=== PATIENT | female | born 1960 | race Caucasian/White ===

== ENCOUNTER 2019-05-20 04:42 | Inpatient (IN) | payer OTHER ==
[~2019-05-20] VITALS: Ht 165.1 cm; Wt 85.7 kg
[2019-05-20 04:45] VITALS: BP_SYST 160
[2019-05-20] MEDS ORDERED: methylPREDNISolone SOD SUCC/PF 62.5 MG/ML VIAL IVP ONE (05:15)
[2019-05-20] MEDS ORDERED: cefTRIAXone 1 GM IVPB PREMIX 50 ML IV ONE (05:15)
[2019-05-20] MEDS ORDERED: AZITHROMYCIN 250 MG TABLET PO ONE (05:15)
[2019-05-20] MEDS ORDERED: ALBUTEROL SULFATE 0.083% 2.5 MG/3 ML VIAL.NEB INH ONE ×2 (05:45→07:50)
[2019-05-20] MEDS ORDERED: IPRATROPIUM BROM 0.5 MG/2.5 ML VIAL.NEB (ATROVENT) INH ONE (05:45)
[2019-05-20 06:08] LABS: BASOPHILS % (AUTO) 0.2 % (0.0-2.0); EOSINOPHILS # (AUTO) 0.2 K/uL (0.0-0.4); EOSINOPHILS % (AUTO) 0.8 % (0.0-4.0); HEMOGLOBIN 14.3 g/dL (12.0-16.0); LYMPHOCYTES # (AUTO) 1.3 K/uL (1.0-5.5); LYMPHOCYTES % (AUTO) 6.6 % (20.5-51.5); MEAN CORPUSCULAR HEMOGLOBIN 31 pg (27-31); MEAN CORPUSCULAR HGB CONC 33 % (32-36); MEAN CORPUSCULAR VOLUME 92 fL (79.0-98.0); MONOCYTES # (AUTO) 2.4 K/uL (0.0-1.0); MONOCYTES % (AUTO) 11.6 % (1.7-9.3); NEUTROPHILS # (AUTO) 16.4 K/uL (1.8-7.7); PLATELET COUNT (AUTO) 233 K/uL (130-430); RED BLOOD CELL COUNT(AUTO) 4.67 MIL/uL (4.2-6.2); RED CELL DISTRIBUTION WIDTH 12.4 % (9.0-15.0); WHITE BLOOD COUNT (AUTO) 20.3 K/uL (4.8-10.8)
[2019-05-20 06:20] LABS: ANION GAP 9 (5-15); CALCIUM 8.8 mg/dL (8.4-11.0); CHLORIDE 100 mmol/L (98-107); CREATININE 0.64 mg/dL (0.55-1.30); GLUCOSE 138 mg/dL (70-99); POTASSIUM 3.5 mmol/L (3.5-5.1); SODIUM SERUM 140 mmol/L (136-145); UREA NITROGEN, BLOOD 8 mg/dL (8-21)
[2019-05-20 06:23] LABS: GFR AFRICAN AMERICAN 122 mL/min (>90)
[2019-05-20 06:28] LABS: ALANINE AMINOTRANSFERASE 40 U/L (12-78); ALBUMIN 2.9 g/dL (3.4-4.8); ASPARTATE AMINOTRANSFERASE 36 U/L (10-37); TOTAL BILIRUBIN 0.3 mg/dL (0.0-1.0)
[2019-05-20] MEDS ORDERED: MAGNESIUM SULFATE 50 ML IV ONE (06:45)
[2019-05-20 06:50] LABS: STREPTOCOCCUS A SCREEN (RAPID) NEGATIVE (NEGATIVE)
[2019-05-20 06:59] LABS: INFLUENZA A&B ANTIGEN SCREEN NEGATIVE FOR A & B (NEGATIVE)
[2019-05-20 07:14] LABS: NEUTROPHILS % (AUTO) 80.8 % (40.0-70.0)
[2019-05-20 08:10] VITALS: BP_SYST 145
[2019-05-20] MEDS ORDERED: DOCUSATE SODIUM 100 MG CAPSULE PO PRN (09:15)
[2019-05-20] MEDS ORDERED: ACETAMINOPHEN 325 MG TABLET PO PRN (09:15)
[2019-05-20] MEDS ORDERED: LORazepam 2 MG/ML VIAL IVP PRN (09:15)
[2019-05-20] MEDS ORDERED: MAGNESIUM SULFATE 50 ML IV PRN (09:15)
[2019-05-20] MEDS ORDERED: MUPIROCIN 2% TOPICAL OINTMENT 22 GM NS PRN (09:15)
[2019-05-20] MEDS ORDERED: ONDANSETRON HCL 4 MG/2 ML VIAL IVP PRN (09:15)
[2019-05-20] MEDS ORDERED: ZOLPIDEM TARTRATE 5 MG TABLET PO PRN (09:15)
[2019-05-20] MEDS ORDERED: MORPHINE SULFATE 10 MG/ML VIAL IVP PRN ×2 (09:15)
[2019-05-20] MEDS ORDERED: POTASSIUM CHLORIDE 20 MEQ TAB.PRT.SR PO PRN (09:15)
[2019-05-20 12:46] VITALS: BP_SYST 124
[2019-05-20] MEDS: IPRATROPIUM/ALBUTEROL SULFATE 3 ML AMPUL.NEB (DUONEB) INH SCH ×2 (13:29→19:56)
[2019-05-20 13:30] VITALS: BP_SYST 124
[2019-05-20] MEDS: methylPREDNISolone SOD SUCC 40 MG/ML VIAL IVP SCH ×2 (13:46→21:10)
[2019-05-20 16:35] VITALS: BP_SYST 125
[2019-05-20 19:45] VITALS: BP_SYST 126
[2019-05-20] MEDS: HEPARIN SODIUM,PORCINE 5000 UNITS/ML VIAL SUBCUT SCH (21:10)
[2019-05-21] MEDS: IPRATROPIUM/ALBUTEROL SULFATE 3 ML AMPUL.NEB (DUONEB) INH SCH ×4 (01:49→20:39)
[2019-05-21 05:49] LABS: BASOPHILS % (AUTO) 0.2 % (0.0-2.0); EOSINOPHILS % (AUTO) 0.1 % (0.0-4.0); HEMATOCRIT 40.4 % (36-48); HEMOGLOBIN 13.3 g/dL (12.0-16.0); LYMPHOCYTES # (AUTO) 0.8 K/uL (1.0-5.5); LYMPHOCYTES % (AUTO) 5.6 % (20.5-51.5); MEAN CORPUSCULAR HEMOGLOBIN 30 pg (27-31); MEAN CORPUSCULAR HGB CONC 33 % (32-36); MEAN CORPUSCULAR VOLUME 93 fL (79.0-98.0); MONOCYTES # (AUTO) 0.9 K/uL (0.0-1.0); MONOCYTES % (AUTO) 6.7 % (1.7-9.3); NEUTROPHILS # (AUTO) 12.3 K/uL (1.8-7.7); NEUTROPHILS % (AUTO) 87.4 % (40.0-70.0); PLATELET COUNT (AUTO) 234 K/uL (130-430); RED BLOOD CELL COUNT(AUTO) 4.35 MIL/uL (4.2-6.2); RED CELL DISTRIBUTION WIDTH 12.5 % (9.0-15.0); WHITE BLOOD COUNT (AUTO) 14.1 K/uL (4.8-10.8)
[2019-05-21 06:00] LABS: CALCIUM 9.4 mg/dL (8.4-11.0); CREATININE 0.61 mg/dL (0.55-1.30); POTASSIUM 4.4 mmol/L (3.5-5.1)
[2019-05-21] MEDS: methylPREDNISolone SOD SUCC 40 MG/ML VIAL IVP SCH ×3 (06:17→21:11)
[2019-05-21 07:32] VITALS: BP_SYST 115
[2019-05-21] MEDS ORDERED: IPRATROPIUM/ALBUTEROL SULFATE 3 ML AMPUL.NEB (DUONEB) INH PRN (08:15)
[2019-05-21] MEDS ORDERED: guaiFENesin/DEXTROMETHORPHAN 10 ML UDC PO SCH (09:00)
[2019-05-21] MEDS: NICOTINE 21 MG/24 HR PATCH.TD24 TD SCH (09:40)
[2019-05-21] MEDS: HEPARIN SODIUM,PORCINE 5000 UNITS/ML VIAL SUBCUT SCH ×2 (09:40→21:09)
[2019-05-21] MEDS: FAMOTIDINE 20 MG TABLET PO SCH (09:40)
[2019-05-21] MEDS: AZITHROMYCIN 250 MG TABLET PO SCH (09:40)
[2019-05-21 12:30] VITALS: BP_SYST 118
[2019-05-21 16:03] VITALS: BP_SYST 122
[2019-05-21 20:00] VITALS: BP_SYST 151
[2019-05-21] MEDS: guaiFENesin ER 600 MG TAB PO SCH (21:11)
[2019-05-22 00:02] VITALS: BP_SYST 138
[2019-05-22] MEDS: IPRATROPIUM/ALBUTEROL SULFATE 3 ML AMPUL.NEB (DUONEB) INH SCH (01:00)
[2019-05-22] MEDS: methylPREDNISolone SOD SUCC 40 MG/ML VIAL IVP SCH (05:30)
[2019-05-22 05:55] LABS: CALCIUM 8.7 mg/dL (8.4-11.0); CREATININE 0.77 mg/dL (0.55-1.30); POTASSIUM 4.6 mmol/L (3.5-5.1)
[2019-05-22 06:12] LABS: BASOPHILS % (AUTO) 0.1 % (0.0-2.0); EOSINOPHILS % (AUTO) 0.1 % (0.0-4.0); HEMOGLOBIN 13.1 g/dL (12.0-16.0); LYMPHOCYTES # (AUTO) 1.1 K/uL (1.0-5.5); LYMPHOCYTES % (AUTO) 5.9 % (20.5-51.5); MEAN CORPUSCULAR HEMOGLOBIN 30 pg (27-31); MEAN CORPUSCULAR HGB CONC 33 % (32-36); MEAN CORPUSCULAR VOLUME 93 fL (79.0-98.0); MONOCYTES # (AUTO) 1.3 K/uL (0.0-1.0); MONOCYTES % (AUTO) 7.2 % (1.7-9.3); NEUTROPHILS # (AUTO) 15.4 K/uL (1.8-7.7); NEUTROPHILS % (AUTO) 86.7 % (40.0-70.0); PLATELET COUNT (AUTO) 250 K/uL (130-430); RED BLOOD CELL COUNT(AUTO) 4.32 MIL/uL (4.2-6.2); RED CELL DISTRIBUTION WIDTH 12.8 % (9.0-15.0); WHITE BLOOD COUNT (AUTO) 17.8 K/uL (4.8-10.8)
[2019-05-22 07:40] VITALS: BP_SYST 148
[2019-05-22] MEDS: AZITHROMYCIN 250 MG TABLET PO SCH (08:42)
[2019-05-22] MEDS: guaiFENesin ER 600 MG TAB PO SCH (08:42)
[2019-05-22] MEDS: FAMOTIDINE 20 MG TABLET PO SCH (08:42)
[2019-05-22] MEDS: NICOTINE 21 MG/24 HR PATCH.TD24 TD SCH (08:43)
[2019-05-22] MEDS: HEPARIN SODIUM,PORCINE 5000 UNITS/ML VIAL SUBCUT SCH (08:50)
[2019-05-22] MEDS ORDERED: PRED10TA PO (09:59)
[2019-05-22] MEDS ORDERED: AZIT250T PO (09:59)
[2019-05-22] MEDS ORDERED: FLO44 INH (09:59)
[2019-05-22 10:17] VITALS: BP_SYST 148
[2019-05-22 12:30] VITALS: BP_SYST 159
== END 2019-05-22 13:00 | disposition home or self-care (01) | DRG 193 ==
LOC: SED 04:42 → STU 07:22
PROVIDERS: ADMIT General Practice; ATTEND General Practice
DX: J18.9 Pneumonia, unspecified organism (principal); J96.21 Acute and chronic respiratory failure with hypoxia; J44.0 Chronic obstructive pulmonary disease with (acute) lower respiratory infection; J44.1 Chronic obstructive pulmonary disease with (acute) exacerbation; F17.210 Nicotine dependence, cigarettes, uncomplicated; Z88.1 Allergy status to other antibiotic agents; T38.0X5A Adverse effect of glucocorticoids and synthetic analogues, initial encounter; Z71.6 Tobacco abuse counseling; Y92.89 Other specified places as the place of occurrence of the external cause
CPT/HCPCS: 36415; 36600; 71045; 80048; 80053; 82803-TC; 83036; 83605; 83735-TC; 83880; 84484; 85025; 85379; 86403; 86710; 87040-TC; 87081; 94640; 94668; 94760; 96365; 96375; 99285; G0378; J0696; J1030; J1644; J2930; J3475; J7613; Q0144; U0002